=== PATIENT | female | born 1955 | race Caucasian/White ===

== ENCOUNTER 2023-09-02 05:28 | Emergency (ER) | payer MEDICARE, OTHER ==
[2023-09-02] MEDS: FAMOTIDINE 20 MG/2 ML VIAL IVP STA (06:44)
[2023-09-02] MEDS: methylPREDNISolone SUCCINATE 125 MG/2 ML VIAL IVP STA (06:45)
[2023-09-02] MEDS: diphenhydrAMINE INJ 50 MG/ML VIAL IVP STA (06:47)
--- NOTE | 2023-09-02 07:33 | ED Physician Documentation ---
PD HPI SKIN - Stated complaint Stated Complaint: RASH - Chief complaint Chief Complaint: Wound - History obtained from History obtained from: Patient, Family () - History of Present Illness Timing - onset: Yesterday Timing - duration: Days (1) Timing - details: Gradual onset, Still present Location: Bodywide Quality / character: Itchy, Discolored. No: Vesicular, Draining Improved by: Other (methylprednisilone and benadryl given here) Associated symptoms: No: Fever, Myalgias, Joint pain, Headache, Facial swelling, Dyspnea, Abd pain, N/V/D, Urinary sx Contributing factors: Exposed to medication (started amioderone 11 days prior to onset of symptoms.) Similar symptoms before: Has not had sx before Recently seen: Surgery (cardiac ablation done 08-21-23) - Additional information Additional information: Carolin Cho is a 67-year-old female with a history of atrial fibrillation s/p ablation who began to develop some itching in her feet yesterday morning on her way to [facility]. Throughout the day she began to have itching more and last night she had a rash over her entire body. She was uncomfortable last night. She presents to the emergency department this morning with an uncomfortable whole body rash that itches. She did do some gardening yesterday morning and showered afterwards. She had some muscles to eat at [employer] yesterday afternoon. She has had muscles previously. She does not have any skip areas in her rash. She has not developed shortness of breath. She has had an ablation done for atrial fibrillation on 20 August. She was started on amiodarone at that time as well as colchicine. She took the colchicine for 7 days. She continues on the amiodarone at a lower dose. Review of Systems Constitutional: denies: Fever, Chills, Myalgias Eyes: denies: Decreased vision Ears: denies: Ear pain Nose: denies: Rhinorrhea / runny nose, Congestion Throat: denies: Sore throat Cardiac: denies: Chest pain / pressure, Palpitations Respiratory: denies: Dyspnea, Cough GI: denies: Abdominal Pain, Nausea, Vomiting, Constipation, Diarrhea : denies: Dysuria, Frequency Skin: reports: Rash Musculoskeletal: denies: Neck pain, Back pain, Extremity pain Neurologic: denies: Generalized weakness, Focal weakness, Numbness PD PAST MEDICAL HISTORY - Past Medical History Past Medical History: Yes Cardiovascular: Atrial fibrillation, Other Neuro: CVA Other Past Medical History: stroke. pacemaker - Past Surgical History Past Surgical History: No - Present Medications Home Medications: Ambulatory Orders Medication Instructions Recorded Confirmed hydrOXYzine HCL [Hydroxyzine HCl] 25 mg PO Q6HR PRN #20 tablet 09/02/23 predniSONE [Deltasone] 40 mg PO DAILY 5 Days #10 tablet 09/02/23 - Allergies Allergies/Adverse Reactions: Allergies Allergy/AdvReac Type Severity Reaction Status Date / Time Penicillins Allergy Rash Verified 09/02/23 05:57 Sulfa (Sulfonamide AdvReac Rash Verified 09/02/23 05:57 Antibiotics) - Social History Does the pt smoke?: No Smoking Status: Never smoker Does the pt drink ETOH?: Yes Does the pt have substance abuse?: No - Immunizations Immunizations are current?: Yes - POLST Patient has POLST: No PD ED PE NORMAL - Vitals Vital signs reviewed: Yes (bradycardic ) - General General: Alert and oriented X 3, No acute distress, Well developed/nourished - HEENT HEENT: Atraumatic, PERRL, EOMI - Neck Neck: Supple, no meningeal sign, No bony TTP - Cardiac Cardiac: RRR, No murmur - Respiratory Respiratory: No respiratory distress, Clear bilaterally - Abdomen Abdomen: Soft, Non tender - Back Back: No CVA TTP, No spinal TTP - Derm Derm: Normal color, Warm and dry, Other (Over the entire body there is a erythematous raised plaques with minimal scaling. Some are excoriated. I am not finding skip areas. Rash is prevalent on the forearms the chest the back the legs.) - Extremities Extremities: No deformity, Other (There is edema to the left lower extremity and the patient has a history of lymphedema.) - Neuro Neuro: Alert and oriented X 3, gaming dealer 2-12 intact, No motor deficit, No sensory deficit, Normal speech Eye Opening: Spontaneous Motor: Obeys Commands Verbal: Oriented GCS Score: 15 - Psych Psych: Normal mood, Normal affect Results - Vitals Vitals: Vital Signs - 24 hr 09/02/23 05:52 Temperature 36.6 C Heart Rate 51 L Respiratory 18 Rate Blood Pressure 101/65 O2 Saturation 100 Oxygen O2 Source Room air - EKG (time done) 0807 EKG releavant findings:: EKG personally interpreted by author of this note. Relevant findings are: Rate: Rate (enter#) (56) Rhythm: NSR QRS: Low voltage Compare to prior EKG: Old EKG unavailable Computer interpretation: Agree with computer PD Medical Decision Making - ED course Complexity details: considered differential, d/w patient, d/w family, d/w business development consultant (Dr. Cat cardiology at [facility] recommends continuing amioderone. ) ED course: 67-year-old female with a whole body rash that is itchy. She has some exposure to gardening but she has taken a shower following that and she does not appear to have any skip areas to suggest that this is a contact dermatitis. She did have some muscles to eat yesterday which she has eaten previously without problem and she clearly states that the itching began in her feet prior to arrival to [facility]. She does have exposure to new medications within the past 12 days. She did take colchicine for 7 days. She is on amiodarone currently. The rash appears systemic and I suspect amiodarone as the culprit. The patient is treated in the emergency department with methylprednisolone intravenously and Benadryl as well as famotidine. At the time my evaluation the patient is having improvement in her symptoms of itching. She did not develop any dyspnea associated with this reaction. I highly suspected the amiodarone to be the culprit in this rash and I contacted the patient's electrophysiology on-call and spoke to Dr. Lizzeth Carrillo who recommended she continue the amiodarone if she is able to tolerate this. I have asked the patient to discontinue the amiodarone if she has persistence or worsening of this rash despite treatment. Departure - Departure Disposition: 01 Home, Self Care Clinical Impression: Allergic reaction caused by a drug Qualifiers: Encounter type: initial encounter Qualified Code(s): T78.40XA - Allergy, unspecified, initial encounter Condition: Stable Instructions: ED Drug React Allergic Follow-Up: SAVITA APONTE MD [Physician No Access] - Prescriptions: hydrOXYzine HCL [Hydroxyzine HCl] 25 mg PO Q6HR PRN #20 tablet PRN Reason: Itching predniSONE [Deltasone] 40 mg PO DAILY 5 Days #10 tablet Comments: Carolin, today it looks like you have a generalized drug eruption and I suspect this is due to the amiodarone. Your health center manager would like you to stay on this medication. I have prescribed some prednisone and hydroxyzine to the [facility] in [place]. Begin taking this medication today. The expectation is improvement in your rash and symptoms. If you have progression or worsening despite taking these medications discontinue the amiodarone and call your health center manager. Take benadryl or a non-sedating anti-histamine (Belia or Zyrtec) for the next 2 days regularly. Forms: PCP List
[2023-09-02] MEDS: hydrOXYzine PAMOATE 25 MG CAPSULE PO STA (09:16)
[2023-09-02 09:27] VITALS: BP 121/54; O2SAT 99
== END 2023-09-02 09:24 | disposition home or self-care (01) ==
LOC: ED 05:28
DX: T50.905A Adverse effect of unspecified drugs, medicaments and biological substances, initial encounter (principal); I48.91 Unspecified atrial fibrillation; Z86.73 Personal history of transient ischemic attack (TIA), and cerebral infarction without residual deficits; Z95.0 Presence of cardiac pacemaker
CPT/HCPCS: 93005; 96374; 96375; 99283; 99284; A9270; J1200